=== PATIENT | female | born 1990 | race Caucasian/White ===

== ENCOUNTER 2016-11-09 08:55 | Emergency (ER) | payer MEDICAID ==
[2016-11-09 09:02] VITALS: BP 138/87
[2016-11-09] MEDS ORDERED: IBUPROFEN 600 MG TABLET PO ONE (09:20)
--- NOTE | 2016-11-09 09:59 | RADIOLOGY REPORT (SQ) ---
EXAM DESCRIPTION: CT HEAD WITHOUT COMPLETED DATE/TIME: 11/09/2016 9:47 am REASON FOR STUDY: right sided angelo COMPARISON: None. TECHNIQUE: Axial images acquired through the brain without intravenous contrast. Images reviewed wi th bone, brain and subdural windows. Images stored on PACS. All CT scanners at this facility use dose modulation, iterative reconstruction, and/or weight based d osing when appropriate to reduce radiation dose to as low as reasonably achievable (ALARA). [facility]: Dose Right [facility]: CareDose [facility]: Dose Right [facility]: Teradose 4D [facility]: Smart [employer] RADIATION DOSE: Up-to-date CT equipment and radiation dose reduction techniques were employed. CTDIv ol: 64.6 mGy. DLP: 1034 mGy-cm. mGy. LIMITATIONS: None. FINDINGS: VENTRICLES: Normal size and contour. CEREBRUM: No masses. No hemorrhage. No midline shift. No evidence for acute infarction. Normal gra y/white matter differentiation. No areas of low density in the white matter. CEREBELLUM: No masses. No hemorrhage. No alteration of density. No evidence for acute infarction. EXTRAAXIAL SPACES: No fluid collections. No masses. ORBITS AND GLOBE: No intra- or extraconal masses. Normal contour of globe without masses. CALVARIUM: No fracture. PARANASAL SINUSES: No fluid or mucosal thickening. SOFT TISSUES: No mass or hematoma. OTHER: No other significant finding. IMPRESSION: NORMAL BRAIN CT WITHOUT CONTRAST. COMMENT: Quality ID # [id number]: Final reports with documentation of one or more dose reduction techniques (e.g., Automated exposure control, adjustment of the mA and/or kV according to patient size, use of iterative reconstruction technique) TECHNICAL DOCUMENTATION: JOB ID: [id number]- All Rights Reserved
--- NOTE | 2016-11-09 10:03 | ER Document Report ---
ED Headache - General Chief Complaint: Headache >24 hrs old Stated Complaint: HEADACHE/BLURRED VISION Time Seen by Provider: 11/09/16 09:20 Mode of Arrival: Ambulatory Information source: Patient Notes: Patient presents with 3 days of right-sided headache. She states the pain is been intermittent and moderate to severe. It is mainly around the right orbital area but does radiate to the rest of her head. She denies any recent trauma. She has had some allergies but no other sinus congestion. No significant change of vision. No vomiting. She denies any significant past medical history or surgeries. Nothing makes the pain better or worse. TRAVEL OUTSIDE OF THE [place] IN LAST 30 DAYS: No - Related Data Allergies/Adverse Reactions: No Known Allergies Allergy (Verified 11/09/16 09:00) Past Medical History - General Information source: Patient - Social History Smoking Status: Never Smoker Chew tobacco use (# tins/day): No Frequency of alcohol use: Rare Drug Abuse: None Family History: Reviewed & Not Pertinent Patient has suicidal ideation: No Patient has homicidal ideation: No Renal/ Medical History: Denies: Hx Peritoneal Dialysis Surgical Hx: Negative Review of Systems - Review of Systems Constitutional: denies: Chills, Fever Respiratory: denies: Cough, Short of breath Gastrointestinal: denies: Abdominal pain, Diarrhea, Vomiting -: Yes All other systems reviewed and negative Physical Exam - Vital signs Vitals: Temp Pulse Resp BP Pulse Ox 98.6 F 85 16 138/87 H 98 11/09/16 08:59 11/09/16 08:59 11/09/16 08:59 11/09/16 08:59 11/09/16 08:59 Interpretation: Hypertensive - General General appearance: Appears well, Alert - HEENT Head: Normocephalic, Atraumatic Eyes: Normal Pupils: PERRL - Respiratory Respiratory status: No respiratory distress Chest status: Nontender Breath sounds: Normal Chest palpation: Normal - Cardiovascular Rhythm: Regular Heart sounds: Normal auscultation Murmur: No - Abdominal Inspection: Normal Distension: No distension Bowel sounds: Normal Tenderness: Nontender Organomegaly: No organomegaly - Back Back: Normal, Nontender - Extremities General upper extremity: Normal inspection, Nontender, Normal color, Normal ROM , Normal temperature General lower extremity: Normal inspection, Nontender, Normal color, Normal ROM , Normal temperature, Normal weight bearing. No: Celia's sign - Neurological Neuro grossly intact: Yes Cognition: Normal Orientation: AAOx4 [place] Coma Scale Eye Opening: Spontaneous [place] Coma Scale Verbal: Oriented [place] Coma Scale Motor: Obeys Commands Hamilton Coma Scale Total: 15 Speech: Normal Cranial nerves: Normal Cerebellar coordination: Normal Motor strength normal: LUE, RUE, LLE, RLE Sensory: Normal - Psychological Associated symptoms: Normal affect, Normal mood - Skin Skin Temperature: Warm Skin Moisture: Dry Skin Color: Normal Course - Vital Signs Vital signs: Temp Pulse Resp BP Pulse Ox 98.6 F 85 16 138/87 H 98 11/09/16 08:59 11/09/16 09:19 11/09/16 09:19 11/09/16 09:19 11/09/16 09:19 - Diagnostic Test Radiology reviewed: Image reviewed, Reports reviewed - Head CT shows no evidence of acute intracranial abnormality Discharge - Discharge Clinical Impression: Migraine Condition: Stable Disposition: HOME, SELF-CARE Instructions: Headache ([facility]) Additional Instructions: Please follow-up with your primary care physician as soon as possible Prescriptions: Hydrocodone/Acetaminophen [[place] 5-325 mg Tablet] 1 tab PO Q6 #8 tablet Forms: Elevated Blood Pressure Referrals: ARNOLD VICENTE MD [ACTIVE STAFF] - Follow up in 1 week
== END 2016-11-09 10:07 | disposition home or self-care (01) ==
LOC: ER 08:55
DX: G43.909 Migraine, unspecified, not intractable, without status migrainosus (principal); R51 Headache; H53.8 Other visual disturbances
CPT/HCPCS: 99284; 70450; J3490

== ENCOUNTER 2016-11-13 20:11 | Observation (INO) | payer MEDICAID ==
--- NOTE | 2016-11-13 13:45 | ER Document Report ---
ED Medical Screen (RME) - General Chief Complaint: Flank Pain Stated Complaint: FLANK PAIN Time Seen by Provider: 11/13/16 13:02 Mode of Arrival: Ambulatory Information source: Patient TRAVEL OUTSIDE OF THE [place] IN LAST 30 DAYS: No - HPI Patient complains to provider of: right flank pain Onset: This afternoon Onset/Duration: Sudden Quality of pain: Achy Severity: Severe Pain Level: 5 Associated Symptoms: Nausea, Vomiting Notes: 11/13/16 13:44 Patient is a 26-year-old female presenting to the emergency room today complaining of right-sided abdominal pain that radiates into her back, it started approximately 2 hours prior to arrival, and is associated with nausea and vomiting, denies any urinary symptoms, denies being , no previous abdominal surgeries, no history of similar symptoms previously - Related Data Allergies/Adverse Reactions: codeine Allergy (Verified 11/13/16 12:48) Past Medical History Renal/ Medical History: Denies: Hx Peritoneal Dialysis Physical Exam - Vital signs Vitals: Temp Pulse Resp BP Pulse Ox 97.8 F 71 18 107/71 98 11/13/16 12:46 11/13/16 12:46 11/13/16 12:46 11/13/16 12:46 11/13/16 12:46 Course - Vital Signs Vital signs: Temp Pulse Resp BP Pulse Ox 97.8 F 71 18 107/71 98 11/13/16 12:46 11/13/16 12:46 11/13/16 12:46 11/13/16 12:46 11/13/16 12:46
[2016-11-13 14:25] LABS: ABSOLUTE EOSINOPHILS # (AUTO) 0.1 10^3/uL (0.0-0.6); ABSOLUTE LYMPHOCYTES (AUTO) 1.1 10^3/uL (0.5-4.7); ABSOLUTE MONOCYTES (AUTO) 0.4 10^3/uL (0.1-1.4); ABSOLUTE NEUT (AUTO) 7.2 10^3/uL (1.7-8.2); BASOPHILS % (AUTO) 0.5 % (0-2); EOSINOPHILS % (AUTO) 0.7 % (0-6); HEMATOCRIT 41.4 % (36.0-47.0); HEMOGLOBIN 13.8 g/dL (12.0-15.5); MEAN CORPUSCULAR HEMOGLOBIN 30.9 pg (27.0-33.4); MEAN CORPUSCULAR HGB CONC 33.4 g/dL (32.0-36.0); MEAN CORPUSCULAR VOLUME 93 fl (80-97); MONOCYTES % (AUTO) 4.2 % (3-13); RED BLOOD COUNT 4.47 10^6/uL (3.72-5.28); RED CELL DISTRIBUTION WIDTH 13.5 % (11.5-14.0); SEGMENTED NEUTROPHILS % (AUTO) 81.6 % (42-78); WHITE BLOOD COUNT 8.8 10^3/uL (4.0-10.5)
[2016-11-13 14:54] LABS: ALANINE AMINOTRANSFERASE 25 U/L (9-52); ALBUMIN 4.5 g/dL (3.5-5.0); ALKALINE PHOSPHATASE 83 U/L (38-126); ANION GAP 11 (5-19); ASPARTATE AMINO TRANSFERASE 21 U/L (14-36); BILIRUBIN,DIRECT 0.4 mg/dL (0.0-0.4); BILIRUBIN,TOTAL 0.7 mg/dL (0.2-1.3); BLOOD UREA NITROGEN 16 mg/dL (7-20); CALCIUM 9.7 mg/dL (8.4-10.2); CARBON DIOXIDE 25 mmol/L (22-30); CHLORIDE 106 mmol/L (98-107); CREATININE RESULT 0.76 mg/dL (0.52-1.25); GLUCOSE 107 mg/dL (75-110); POTASSIUM 4.1 mmol/L (3.6-5.0); TOTAL PROTEIN 7.6 g/dL (6.3-8.2)
[2016-11-13 15:11] LABS: APPEARANCE,URINE TURBID; BILIRUBIN,URINE NEGATIVE (NEGATIVE); GLUCOSE, URINE NEGATIVE (NEGATIVE); KETONES,URINE NEGATIVE (NEGATIVE); LEUKOCYTE ESTERASE,URINE NEGATIVE (NEGATIVE); NITRITE,URINE NEGATIVE (NEGATIVE); PROTEIN,URINE NEGATIVE (NEGATIVE); URINE SPECIFIC GRAVITY 1.023; UROBILINOGEN,URINE NEGATIVE mg/dL (<2.0)
--- NOTE | 2016-11-13 15:18 | ER Document Report ---
ED GI/ - General Mode of Arrival: Ambulatory Information source: Patient TRAVEL OUTSIDE OF THE [place] IN LAST 30 DAYS: No - HPI Patient complains to provider of: Abdominal pain Onset: This afternoon - [id number] Timing/Duration: Persistent Location: RLQ Associated symptoms: Nausea, Vomiting Similar symptoms previously: No <EFREN CARNEY - Last Filed: 11/13/16 16:56> <ORACIO VERDUZCO - Last Filed: 11/14/16 00:45> - General Chief Complaint: Flank Pain Stated Complaint: FLANK PAIN Time Seen by Provider: 11/13/16 13:02 Notes: Patient is a 26 year old female that presents to the emergency department today with complaints of right lower quadrant abdominal pain. Patient states the pain seems to radiate to her back. Patient states she has a history of ovarian cysts but this pain feels different. Patient states she has had associated nausea and vomiting. (EFREN CARNEY) - Related Data Allergies/Adverse Reactions: codeine Allergy (Verified 11/13/16 12:48) Past Medical History - General Information source: Patient - Social History Smoking Status: Never Smoker Cigarette use (# per day): No Chew tobacco use (# tins/day): No Frequency of alcohol use: None Drug Abuse: None Lives with: Family Family History: Reviewed & Not Pertinent - Medical History Medical History: Negative Surgical Hx: Negative <EFREN CARNEY - Last Filed: 11/13/16 16:56> Review of Systems - Review of Systems Constitutional: No symptoms reported EENT: No symptoms reported Cardiovascular: No symptoms reported Respiratory: No symptoms reported Gastrointestinal: See HPI, Abdominal pain, Vomiting Genitourinary: No symptoms reported Female Genitourinary: No symptoms reported Musculoskeletal: No symptoms reported Skin: No symptoms reported Hematologic/Lymphatic: No symptoms reported Neurological/Psychological: No symptoms reported -: Yes All other systems reviewed and negative <EFREN CARNEY - Last Filed: 11/13/16 16:56> Physical Exam <EFREN CARNEY - Last Filed: 11/13/16 16:56> <ORACIO VERDUZCO - Last Filed: 11/14/16 00:45> - Vital signs Vitals: Temp Pulse Resp BP Pulse Ox 97.8 F 71 18 107/71 98 11/13/16 12:46 11/13/16 12:46 11/13/16 12:46 11/13/16 12:46 11/13/16 12:46 - Notes Notes: Physical Exam: General: Alert, appears uncomfortable. HEENT: Normocephalic. Atraumatic. PERRL. Extraocular movements intact. Oropharynx clear. Neck: Supple. Non-tender. Respiratory: No respiratory distress. Clear and equal breath sounds bilaterally. Cardiovascular: Regular rate and rhythm. Abdominal: Right lower quadrant tenderness with palpation, palpation of left lower quadrant reproduces pain in the right lower quadrant. No distension. Normal Bowel Sounds. Back: Non-tender. No deformity or step off. Extremities: Moves all four extremities. Upper extremities: Normal inspection. Normal ROM. Lower extremities: Normal inspection. No edema. Normal ROM. Neurological: Normal cognition. AAOx4. Normal speech. Psychological: Normal affect. Normal Mood. Skin: Warm. Dry. Normal color. (EFREN CARNEY) Course - Laboratory Result Diagrams: 11/13/16 14:05 11/13/16 14:05 <EFREN CARNEY - Last Filed: 11/13/16 16:56> - Laboratory Result Diagrams: 11/13/16 14:05 11/13/16 14:05 - Diagnostic Test Radiology reviewed: Reports reviewed <ORACIO VERDUZCO - Last Filed: 11/14/16 00:45> - Re-evaluation Re-evalutation: 11/13 Patient is a 26-year-old female who comes in complaining of right lower abdominal pain. Patient with appendicolith on CT that is retrocecal and some inflammation. Patient also with ovarian cyst bilaterally, the right which is quite large. Patient states that she has had ovarian cyst and the pain does not feel the same as it has in the past. Patient discussed with Dr. Moses. Transvaginal ultrasound with Doppler ordered. Dr. Moses is concerned that the patient has appendicitis and will take her to the OR. He is also calling the FINISH GRINDER, Dr. Romero to also come to the OR. Patient has been n.p.o. She has been fluid resuscitated, given pain and nausea medicine. Stable at time of admission. Agrees with plan. (ORACIO VERDUZCO) - Vital Signs Vital signs: Temp Pulse Resp BP Pulse Ox 97.8 F 71 18 107/71 98 11/13/16 12:46 11/13/16 12:46 11/13/16 12:46 11/13/16 12:46 11/13/16 12:46 - Laboratory Laboratory results interpreted by me: 11/13/16 11/13/16 14:05 14:05 Seg Neutrophils % 81.6 H Urine Blood SMALL H Discharge <EFREN CARNEY - Last Filed: 11/13/16 16:56> - Discharge Admitting Provider: Surgicalist - [place] Unit Admitted: Surgical Floor <ORACIO VERDUZCO - Last Filed: 11/14/16 00:45> - Discharge Clinical Impression: Possible appendicitis, Cysts of both ovaries Abdominal pain Qualifiers: Abdominal location: right lower quadrant Qualified Code(s): R10.31 - Right lower quadrant pain Condition: Stable Disposition: ADMITTED INPATIENT Scribe Attestation: 11/13/16 16:35 I personally performed the services described in the documentation, reviewed and edited the documentation which was dictated to the scribe in my presence, and it accurately records my words and actions. (ORACIO VERDUZCO) Scribe Documentation - Scribe Written by Delmi:: Delmi Rosario, 11/13/2016 1649 acting as scribe for :: Bridgette <EFREN CARNEY - Last Filed: 11/13/16 16:56>
--- NOTE | 2016-11-13 16:01 | RADIOLOGY REPORT (SQ) ---
EXAM DESCRIPTION: CT LTD RENAL STONE PROTOCOL ON COMPLETED DATE/TIME: 11/13/2016 3:42 pm REASON FOR STUDY: abd, flank pain COMPARISON: None. TECHNIQUE: CT scan of the abdomen and pelvis performed without intravenous or oral contrast. Images reviewed with lung, soft tissue, and bone windows. Reconstructed coronal and sagittal MPR images revi ewed. All images stored on PACS. All CT scanners at this facility use dose modulation, iterative reconstruction, and/or weight based d osing when appropriate to reduce radiation dose to as low as reasonably achievable (ALARA). [facility]: Dose Right [facility]: CareDose [facility]: Dose Right [facility]: Teradose 4D [facility]: Smart [employer] RADIATION DOSE: Up-to-date CT equipment and radiation dose reduction techniques were employed. CTDIv ol: 11.5 mGy. DLP: 658 mGy-cm.mGy. LIMITATIONS: None. FINDINGS: On coronal images 28 through 34, there is inflammation in the right lower quadrant fat adj acent to a loop of distal ileum filled with feces like material. This is abnormal but nonspecific. Patient has a retrocecal appendix with an at appendicolith. No definite periappendiceal inflammation or fluid or abscess. Mild appendix wall thickening along its tip. These changes are best shown on sagittal images 31 through 34. In the right adnexa, a low-density 7 x 6 cm cyst is present. No right adnexal free fluid. These above findings were discussed with Dr. Angeles in the emergency room, 1548 hours 11/13/2016 LOWER CHEST: No significant findings. No nodules or infiltrates. NON-CONTRASTED LIVER, SPLEEN, ADRENALS: Evaluation limited by lack of IV contrast. No identified sign ificant masses. PANCREAS: No masses. No peripancreatic inflammatory changes. GALLBLADDER: No identified stones by CT criteria. No inflammatory changes to suggest cholecystitis. RIGHT KIDNEY AND URETER: No suspicious masses. Assessment limited by lack of IV contrast. No signif icant calcifications. No hydronephrosis or hydroureter. LEFT KIDNEY AND URETER: No suspicious masses. Assessment limited by lack of IV contrast. No signifi cant calcifications. No hydronephrosis or hydroureter. AORTA AND RETROPERITONEUM: No aneurysm. No retroperitoneal masses or adenopathy. BOWEL AND PERITONEAL CAVITY: No gross evidence of bowel obstruction. No free intraperitoneal air or fluid. Stomach, proximal small bowel is decompressed. There is feces like material in the distal sm all bowel, and a moderate amount of stool in the ascending colon. No colon diverticuli. APPENDIX: As above PELVIS, BLADDER, AND ABDOMINAL WALL:7 x 6 cm right ovarian/ adnexal cyst. Normal size uterus. Small less than 3 cm left ovarian cyst. No bladder stones. Limited view of the rectum unremarkable. No pelvic adenopathy. BONES: No significant findings. OTHER: No other significant finding. IMPRESSION: Moderate stool in the ascending colon. Stool-like material in the distal small bowel, w ith mild inflammatory stranding in the mesenteries to the distal ileum. Appendicular with minimal wall thickening distal tip of the appendix Right ovarian cyst/adnexal cyst COMMENT: Quality ID # [id number]: Final reports with documentation of one or more dose reduction techniques (e.g., Automated exposure control, adjustment of the mA and/or kV according to patient size, use of iterative reconstruction technique) TECHNICAL DOCUMENTATION: JOB ID: [id number] [employer]- All Rights Reserved
--- NOTE | 2016-11-13 16:45 | PDOC H&P ---
History of Present Illness Admission Date/PCP: Today's date, November 13, 2016 Patient complains of: Abdominal pain nausea and vomiting History of Present Illness: RADHA MARTE is a 26 year old female who is brought by ground rescue to [facility] complaint acute onset abdominal pain right sided right flank associated nausea and vomiting. She denies history of previous episodes, history of trauma, history of gastrointestinal problems. Last bowel movement this morning, normal. She has a history of large right ovarian cyst, and the pain associated with this cyst is different from today's pain. The patient was seen in the emergency department where she was felt to have a possible kidney stone. Her urinalysis was unremarkable. She underwent CT scan of the abdomen and pelvis without IV and oral contrast which showed the right large ovarian cyst approximately 6-7 cm, some inflammatory change in the right lower quadrant , some equalization of the lumen of the distal small bowel, and an appendicolith in a fairly normal sized appendix, with periappendiceal stranding. Surgery was consulted. Patient continued to have abdominal pain. She was advised admission and definitive management. Past Surgical History Past Surgical History: Reports: Other - Right variant cyst, previously undergoing diagnostic laparoscopy by Dr. Landers Social History Smoking Status: Never Smoker Hx Recreational Drug Use: No Hx Prescription Drug Abuse: No Family History Family History: Reviewed & Not Pertinent Parental Family History Reviewed: Yes Children Family History Reviewed: Yes Sibling(s) Family History Reviewed.: Yes Medication/Allergy Home Medications: Hydrocodone/Acetaminophen [[place] 5-325 mg Tablet] 1 tab PO Q6 #8 tablet Allergies/Adverse Reactions: codeine Allergy (Verified 11/13/16 12:48) Review of Systems Constitutional: PRESENT: as per HPI Eyes: ABSENT: visual disturbances Ears: ABSENT: hearing changes Cardiovascular: ABSENT: chest pain, dyspnea on exertion, edema, orthropnea, palpitations Respiratory: ABSENT: cough, hemoptysis Genitourinary: ABSENT: dysuria, hematuria Integumentary: ABSENT: rash, wounds Neurological: ABSENT: abnormal gait, abnormal speech, confusion, dizziness, focal weakness, syncope Hematologic/Lymphatic: ABSENT: easy bleeding, easy bruising Physical Exam Vital Signs: Temp Pulse Resp BP Pulse Ox 97.8 F 71 18 107/71 98 11/13/16 12:46 11/13/16 12:46 11/13/16 12:46 11/13/16 12:46 11/13/16 12:46 Intake & Output 11/12/16 11/13/16 11/14/16 06:59 06:59 06:59 Weight 95.6 kg General appearance: PRESENT: mild distress Head exam: PRESENT: normocephalic Eye exam: PRESENT: EOMI Ear exam: PRESENT: normal external ear exam Mouth exam: PRESENT: moist Respiratory exam: PRESENT: clear to auscultation hayde Cardiovascular exam: PRESENT: RRR Pulses: PRESENT: +2 pedal pulses bilateral GI/Abdominal exam: PRESENT: other - Very tender right lower quadrant and right flank. Some tenderness in the pelvic region, but pain is referred to the right side Rectal exam: PRESENT: deferred Musculoskeletal exam: PRESENT: full ROM Neurological exam: PRESENT: alert, oriented to person, oriented to place, oriented to time, oriented to situation Psychiatric exam: PRESENT: appropriate affect Results Laboratory Results: 11/13/16 14:05 11/13/16 14:05 11/13/16 11/13/16 11/13/16 14:05 14:05 14:05 WBC 8.8 RBC 4.47 Hgb 13.8 Hct 41.4 MCV 93 MCH 30.9 MCHC 33.4 RDW 13.5 Plt Count 343 Seg Neutrophils % 81.6 H Lymphocytes % 13.0 Monocytes % 4.2 Eosinophils % 0.7 Basophils % 0.5 Absolute Neutrophils 7.2 Absolute Lymphocytes 1.1 Absolute Monocytes 0.4 Absolute Eosinophils 0.1 Absolute Basophils 0.0 Sodium 142.0 Potassium 4.1 Chloride 106 Carbon Dioxide 25 Anion Gap 11 BUN 16 Creatinine 0.76 Est GFR ( Amer) > 60 Est GFR (Non-Af Amer) > 60 Glucose 107 Calcium 9.7 Total Bilirubin 0.7 AST 21 ALT 25 Alkaline Phosphatase 83 Total Protein 7.6 Albumin 4.5 Lipase 76.0 Serum HCG, Qual NEGATIVE Urine Color Urine Appearance Urine pH Ur Specific Hamilton Urine Protein Urine Glucose (UA) Urine Ketones Urine Blood Urine Nitrite Ur Leukocyte Esterase Urine WBC (Auto) Urine RBC (Auto) 11/13/16 14:05 WBC RBC Hgb Hct MCV MCH MCHC RDW Plt Count Seg Neutrophils % Lymphocytes % Monocytes % Eosinophils % Basophils % Absolute Neutrophils Absolute Lymphocytes Absolute Monocytes Absolute Eosinophils Absolute Basophils Sodium Potassium Chloride Carbon Dioxide Anion Gap BUN Creatinine Est GFR ( Amer) Est GFR (Non-Af Amer) Glucose Calcium Total Bilirubin AST ALT Alkaline Phosphatase Total Protein Albumin Lipase Serum HCG, Qual Urine Color YELLOW Urine Appearance TURBID Urine pH 5.0 Ur Specific [place] 1.023 Urine Protein NEGATIVE Urine Glucose (UA) NEGATIVE Urine Ketones NEGATIVE Urine Blood SMALL H Urine Nitrite NEGATIVE Ur Leukocyte Esterase NEGATIVE Urine WBC (Auto) 5 Urine RBC (Auto) 0 Impressions: Limited or Localized CT 11/13/16 15:24 IMPRESSION: Moderate stool in the ascending colon. Stool-like material in the distal small bowel, with mild inflammatory stranding in the mesenteries to the distal ileum. Appendicular with minimal wall thickening distal tip of the appendix Right ovarian cyst/adnexal cyst Assessment & Plan - Diagnosis (1) Abdominal pain Qualifiers: Abdominal location: right lower quadrant Qualified Code(s): R10.31 - Right lower quadrant pain Is this a current diagnosis for this admission?: Yes Plan: Associated with nausea and vomiting, CT scan findings consistent with appendicolith with periappendiceal stranding. Patient's symptom complex is different from previous abdominal pelvic pains attributed to ovarian cyst enlargement. I believe the patient is suffering from acute appendicitis, early, and deserves laparoscopic appendectomy. Naturally concomitant gynecologic pathology may be encountered. I have alerted [facility] customer operations representative Dr. Romero to be on standby. I have explained the recommendations to the patient and she agrees to proceed. We will perform laparoscopic, possible open appendectomy, other necessary surgery deemed appropriate based on intraoperative findings, [facility], general anesthesia. (2) Ovarian cyst Qualifiers: Laterality: bilateral Qualified Code(s): N83.201 - Unspecified ovarian cyst , right side; N83.202 - Unspecified ovarian cyst, left side Is this a current diagnosis for this admission?: Yes Plan: Chronic, right side dominant approximately 7 cm; smaller 2-1/2 cm left ovarian cyst. Unlikely rupturing and unlikely torsed. (3) Migraine Is this a current diagnosis for this admission?: Yes - Time Time Spent: 50 to 70 Minutes Critical Time spent with patient: Less than 15 minutes Medications reviewed and adjusted accordingly: Yes Anticipated discharge: Home Within: within 24 hours - Inpatient Certification Based on my medical assessment, after consideration of the patient's comorbidities, presenting symptoms, or acuity I expect that the services needed warrant INPATIENT care.: Yes I certify that my determination is in accordance with my understanding of Medicare's requirements for reasonable and necessary INPATIENT services [42 CFR 412.3e].: Yes Medical Necessity: Need For IV Fluids, Need for Pain Control, Need for IV Antibiotics, Need for Surgery
--- NOTE | 2016-11-13 19:41 | Operative Report ---
Operative Report DATE OF SURGERY: 11/13/16 PREOPERATIVE DIAGNOSIS: 1. Acute abdominal pain. 2. Acute appendicitis. 3. Right ovarian cyst POSTOPERATIVE DIAGNOSIS: 1. limited hemoperitoneum. 2. Right torsed hydrosalpinx. 3. Inflamed appendix. 4. 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 Exploratory laparoscopy. 2. Laparoscopic appendectomy. 3. Assist with right salpingectomy SURGEON: HALIE MOSES 1ST HAZARDOUS MATERIAL SPECIALIST: HEATHER ALFRED ANESTHESIA: GA TISSUE REMOVED OR ALTERED: 1 appendix; right hydrosalpinx COMPLICATIONS: None ESTIMATED BLOOD LOSS: 15 cc INTRAOPERATIVE FINDINGS: See below PROCEDURE: Indications: The patient is a 23-year-old white female with history of acute onset abdominal pain localized right lower quadrant tenderness mild left shift and CT scan findings consistent with right ovarian cyst, and inflamed appendix with appendicolith. She was advised to undergo laparoscopic appendectomy and necessary surgery. I explained to the patient as well as her parents that we had WATER REGULATOR AND VALVE REPAIRER on standby if intraoperative consultation was required for management of pelvic disease identified at time of diagnostic laparoscopy. Patient was taken the operating room where general anesthesia was induced arms were abducted abdomen prepped and draped in sterile fashion instrumentation set up for laparoscopic appendectomy. Surgical plan and surgical timeout were conducted Skin was any stopped quarter percent Marcaine above the umbilicus, in the suprapubic area and in the left lower quadrant. Prior to draping and prepping, however, the patient had a Taylor catheter inserted. A supraumbilical vertical incision was made with a knife, Veress needle inserted the peritoneal cavity, pneumoperitoneum was established. Veress needle was removed 5 mm ports inserted a 5 mm flexible scope was inserted. 2 additional ports were placed one 5 mm in the suprapubic position and a 12 mm left lower quadrant Findings are significant for a mild amount of free blood in the pelvis. We immediately identified a large hemorrhagic mass in the retrouterine area lying adjacent to the right tube and ovary. We left it as it is and call Dr. lAfred , range master for intraoperative consultation. 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 The liver parenchyma, gallbladder, stomach spleen small intestine and large colon and peritoneal cavity otherwise appeared grossly normal. We elevated the cecum cephalad, mobilizing the small bowel out of the pelvis and exposed the appendix which was chronically thickened. It was elevated into the free peritoneal space. Mesial appendix was released partially, then a dissector was used to get around the base of the appendix which was very normal at stump. A single firing of the Hoot Owl Endo DAVIS, blue load, 45 mm staplr was deployed and the appendix was amputated at its base. A separate firing was then performed across the mesoappendix again with the terminal ileum and cecum well out of harm's way. Unfortunately there was a bleeder from the mesoappendiceal tissue that was left in situ and this was managed with a single application of a Hemoclip. Hemostasis was achieved. The next portion of the operation was performed by Dr. Alfred, and dictated by her separately. Dr. Moses assisted Dr. Alfred in that portion of the operation. Once the right hydrosalpinx was removed and photographs were taken of the residual pathoanatomy in the pelvis, we felt the operation was complete. Sponge and needle counts correct. All ports removed under direct visualization pneumoperitoneum evacuated and all 4 wounds from 4 port sites with the fourth being the right lower quadrant as evidenced by Dr. Alfred were closed with 3-0 Vicryl benzoin and Steri-Strips Patient taught procedure well, extubated and taken recovery in stable condition.
[~2016-11-13 20:11] MED LIST: BUPIVACAINE HCL 0.25 % INJ/PF (2.5 MG/1 ML) 30 ML VIAL ONE; CEFAZOLIN INJ 1 GM VIAL ONE; DEXAMETHASONE SOD PHOSPHATE INJ 4 MG/1 ML VIAL ONE; DIPHENHYDRAMINE HCL 50 MG/ML VIAL IV PRN; EPHEDRINE SULFATE INJ 50 MG/1 ML AMPULE ONE; FENTANYL CITRATE INJ/PF 100 MCG/2 ML AMPUL IV PRN; FENTANYL CITRATE INJ/PF 100 MCG/2 ML AMPUL ONE; GLYCOPYRROLATE INJ 0.4 MG/2 ML VIAL ONE; HYDROMORPHONE HCL INJ/PF 2 MG/ML AMPULE ONE; IBUPROFEN INJ 800 MG/8 ML VIAL IV ONE; KETOROLAC TROMETHAMINE 10 MG TABLET PO PRN; KETOROLAC TROMETHAMINE INJ/PF 30 MG/1 ML SDV IV PRN; MEPERIDINE HCL/PF INJ 25 MG/1 ML DISP.SYRIN IV PRN; MIDAZOLAM 2 MG/2 ML INJ ONE; MORPHINE SULFATE 10 MG/ML INJ IV ONE; MORPHINE SULFATE 10 MG/ML INJ IV PRN; NEOSTIGMINE METHYLSULFATE 10 MG/10 ML VIAL ONE; NORMAL SALINE 1000 ML 1,000 ML IV ONE; NORMAL SALINE 1000 ML 1,000 ML IV PRN; ONDANSETRON HCL INJ/PF 4 MG/2 ML SDV IV ONE; ONDANSETRON HCL INJ/PF 4 MG/2 ML SDV IV PRN; ONDANSETRON HCL INJ/PF 4 MG/2 ML SDV ONE; PROMETHAZINE HCL INJ 25 MG/1 ML VIAL IV PRN; PROPOFOL INJ 200 MG/20 ML VIAL IV ONE; ROCURONIUM BROMIDE INJ 50 MG/5 ML VIAL IV ONE
--- NOTE | 2016-11-13 20:13 | OPERATIVE REPORT E ---
Operative Report NAME: ARDHA MARTE : 1990 AGE: 26Y DATE OF SURGERY: 11/13/2016 ROOM: PREOPERATIVE DIAGNOSIS: Abdominal pain. POSTOPERATIVE DIAGNOSES: 1. Torsed right hydrosalpinx. 2. 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 OPERATION: 1. Appendectomy per Augustine Moses MD. 2. Right salpingectomy, Yadiel Douglas MD. SURGEON: YADIEL DOUGLAS M.D. SURGEON: Augustine Moses MD for appendectomy. ESTIMATED BLOOD LOSS: Per anesthesia. SPECIMEN TO PATHOLOGY: Right hydrosalpinx and appendix. FINDINGS: The appendix was almost removed by the time that time that I arrived in the OR. The right fallopian tube was necrotic in appearance, approximately 7 to 8 cm in size and torsed near the right ovary. The right ovary itself appeared normal. There was also evidence of Saturnino-Christopher and Leo syndrome above the patient's liver. There was also obvious adhesive disease of the left fallopian tube which was adhered over the left ovary. The left fallopian tube itself appeared to have a small hydrosalpinx distally within it. DESCRIPTION OF PROCEDURE: Dr. Moses had discussed the procedure with the patient prior to taking her to the OR. On my arrival, there were [address], a 12 mm in the left hemiabdomen, a 5 mm in the umbilicus, and a 5 mm in the suprapubic region. Dr. Moses performed appendectomy in standard fashion and placed the specimen in the pelvis. I then premedicated the trocar site for the right lower quadrant and under direct visualization, placed a 5 mm trocar. The LigaSure device was introduced through this trocar and the salpingectomy performed at the base of the strictured region. This was almost immediately adjacent to the ovary, but did not include blood supply to the ovary. After removing the torsed hydrosalpinx, it was placed in the posterior cul-de-sac. The LigaSure device was removed. A suction attached to a needle tipped device was introduced through the trocar under direct visualization and used to puncture the cyst cavity to allow for decompression enough to place it within the Endo Catch bag. The suction was then removed. The appendix and the right fallopian tube were placed within the Endo Catch bag. The hydrosalpinx still contained clear fluid at this point. The 12 mm trocar was removed and the Endo Catch removed through that trocar site, grasping with Shyann clamps. The tube was morcelized with Kellys and suction was used to decompress the bag further. The appendix was also removed in this fashion. The 12 mm trocar was then replaced. The pelvis was irrigated copiously and hemostasis assured throughout. I then left the OR and Dr. Moses removed the trocars and repaired the incisions. DICTATING PHYSICIAN: YADIEL DOUGLAS M.D. [id number] PHY#: [id number] ID: [id number] JOB#: [id number] ACCT: [id number] cc:YADIEL DOUGLAS M.D. > MTDD
[2016-11-13 23:46] LABS: CHLAM PCR NOT DETECTED (NOT DETECT)
[2016-11-14] MEDS ORDERED: DOXYCYCLINE HYCLATE 100 MG TABLET PO SCH (10:00)
--- NOTE | 2016-11-14 10:38 | DISCHARGE SUMMARY E ---
Discharge Summary NAME: RADHA MARTE : 1990 AGE: 26Y ADMITTED: 11/13/2016 DISCHARGED: 11/14/2016 FINAL DIAGNOSES: 1. Acute appendicitis. 2. Torsion of right hydrosalpinx. 3. 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 PROCEDURE DONE: Appendectomy by Dr. Moses and right salpingectomy by Dr. Morrow on 11/13/2016. HOSPITAL COURSE: Patient admitted with right lower quadrant abdominal pains. Patient underwent an appendectomy by Dr. Moses and right salpingectomy for torsion of the right hydrosalpinx by Dr. Morrow done laparoscopically. Postoperatively patient did well. She is tolerating a regular diet this morning on the day of discharge. She will be discharged on doxycycline 100 mg p.o. b.i.d. for 1 week and she will be followed up in the office by Dr. Moses and Dr. Morrow in about 1-2 weeks. 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 DICTATING PHYSICIAN: EVELYN SANDOVAL M.D. [id number] PHY#: [id number] ID: [id number] JOB#: [id number] ACCT: [id number] cc:HALIE MOSES M.D., FAUSTINO M.D. >
[2016-11-14 12:26] VITALS: BP 111/62
== END 2016-11-14 12:44 | disposition home or self-care (01) ==
LOC: 2S 20:11 → LC 20:11 → 2S 20:33 → LC 20:33 → 2S 21:58 → UNDOADMOB 22:07 → 2S 22:07 → UNDODISOB 11-14 12:44
PROVIDERS: ADMIT Surgery; ATTEND Surgery
PROC: 0DTJ4ZZ Resection of Appendix, Percutaneous Endoscopic Approach (ICD-10-PCS; 2016-11-13)
PROC: 0UB54ZZ Excision of Right Fallopian Tube, Percutaneous Endoscopic Approach (ICD-10-PCS; principal; 2016-11-13 18:10)
DX: K35.80 Unspecified acute appendicitis (principal); N83.521 Torsion of right fallopian tube; N70.11 Chronic salpingitis; N73.6 Female pelvic peritoneal adhesions (postinfective); N83.202 Unspecified ovarian cyst, left side; G43.909 Migraine, unspecified, not intractable, without status migrainosus
CPT/HCPCS: 96376; 99285; 96361; 96375; 36415; 83690; 84703; 96374; 85025; 80053; 81001; 87491; 87591; 88304 ×2; 76380; 94799; 58661; 44979; J2250; J0690; J3490 ×3; J1100; J3010; J2270; J1170; J2405; S0020; J7030; J2704; J1741; 840

== ENCOUNTER 2016-11-16 14:16 | Emergency (ER) | payer MEDICAID ==
--- NOTE | 2016-11-16 14:36 | ER Document Report ---
ED Medical Screen (RME) - General Chief Complaint: Arm Pain Stated Complaint: RIGHT ARM PAIN AND SWELLING Time Seen by Provider: 11/16/16 14:33 Mode of Arrival: Ambulatory Information source: Patient TRAVEL OUTSIDE OF THE [place] IN LAST 30 DAYS: No - HPI Patient complains to provider of: R arm pain Onset: Yesterday - pt had appy 2 days ago and IV placed in R arm -- yesterday started having pain in R arm and now having red discolored areas on R arm - Related Data Allergies/Adverse Reactions: codeine Allergy (Verified 11/16/16 14:27) Past Medical History Renal/ Medical History: Denies: Hx Peritoneal Dialysis Past Surgical History: Reports: Other - Right variant cyst, previously undergoing diagnostic laparoscopy by Dr. Landers
[2016-11-16 14:50] LABS: ABSOLUTE BASOPHILS # (AUTO) 0.1 10^3/uL (0.0-0.2); ABSOLUTE LYMPHOCYTES (AUTO) 2.3 10^3/uL (0.5-4.7); ABSOLUTE MONOCYTES (AUTO) 0.6 10^3/uL (0.1-1.4); ABSOLUTE NEUT (AUTO) 5.4 10^3/uL (1.7-8.2); BASOPHILS % (AUTO) 0.7 % (0-2); EOSINOPHILS % (AUTO) 0.3 % (0-6); HEMATOCRIT 39.7 % (36.0-47.0); HEMOGLOBIN 13.8 g/dL (12.0-15.5); HGB HCT DIFFERENCE 1.7; LYMPHOCYTES % (AUTO) 27.6 % (13-45); MEAN CORPUSCULAR HEMOGLOBIN 31.4 pg (27.0-33.4); MEAN CORPUSCULAR HGB CONC 34.7 g/dL (32.0-36.0); MEAN CORPUSCULAR VOLUME 90 fl (80-97); MONOCYTES % (AUTO) 6.9 % (3-13); RED CELL DISTRIBUTION WIDTH 13.5 % (11.5-14.0); SEGMENTED NEUTROPHILS % (AUTO) 64.5 % (42-78); WHITE BLOOD COUNT 8.4 10^3/uL (4.0-10.5)
[2016-11-16 15:08] LABS: ALANINE AMINOTRANSFERASE 31 U/L (9-52); ALBUMIN 4.4 g/dL (3.5-5.0); ALKALINE PHOSPHATASE 80 U/L (38-126); ANION GAP 13 (5-19); ASPARTATE AMINO TRANSFERASE 20 U/L (14-36); BILIRUBIN,DIRECT 0.4 mg/dL (0.0-0.4); BILIRUBIN,TOTAL 0.7 mg/dL (0.2-1.3); BLOOD UREA NITROGEN 12 mg/dL (7-20); CALCIUM 9.9 mg/dL (8.4-10.2); CARBON DIOXIDE 27 mmol/L (22-30); CHLORIDE 101 mmol/L (98-107); CREATININE RESULT 0.72 mg/dL (0.52-1.25); GLUCOSE 90 mg/dL (75-110); POTASSIUM 3.8 mmol/L (3.6-5.0); SODIUM 141.1 mmol/L (137-145); TOTAL PROTEIN 7.4 g/dL (6.3-8.2)
[2016-11-16] MEDS ORDERED: ASPIRIN 325 MG TABLET PO ONE (17:14)
--- NOTE | 2016-11-16 17:14 | RADIOLOGY REPORT (SQ) ---
EXAM DESCRIPTION: VENOUS UNILATERAL UPPER COMPLETED DATE/TIME: 11/16/2016 5:00 pm REASON FOR STUDY: RRUE pain and swelling after IV on sunday, BC use COMPARISON: None. TECHNIQUE: Dynamic and static watters scale and color images acquired of the right arm venous system. S elected spectral images acquired with additional compression and augmentation maneuvers. The contrala teral subclavian vein and internal jugular vein were also imaged. Images stored on PACS. LIMITATIONS: None. FINDINGS: INTERNAL JUGULAR VEIN: Normal phasicity, compression, augmentation. No visualized echogeni c material on watters scale. No defects on color images. Comparison opposite side normal. SUBCLAVIAN VEIN: Normal compression, augmentation. No visualized echogenic material on watters scale. No defects on color images. AXILLARY VEIN: Normal compression, augmentation. No visualized echogenic material on watters scale. No d efects on color images. BRACHIAL VEIN: Normal compression, augmentation. No visualized echogenic material on watters scale. No d efects on color images. BASILIC VEIN: Thrombus present in the basilic vein. CEPHALIC VEIN: Thrombus present in the cephalic vein. OTHER: No other significant finding. CONTRALATERAL SUBCLAVIAN VEIN AND INTERNAL JUGULAR VEIN: Normal phasicity, compression and augmentation. No visualized echogenic material on watters scale. No de fects on color images. IMPRESSION: No evidence for DVT. Acute thrombus in the SVT basilic and cephalic veins. COMMENT: This report was called to HARRY GROVE at17:09 on 11/16/2016. TECHNICAL DOCUMENTATION: JOB ID: [id number] All Rights Reserved
--- NOTE | 2016-11-16 17:15 | ER Document Report ---
ED Extremity Problem, Upper - General Chief Complaint: Arm Pain Stated Complaint: RIGHT ARM PAIN AND SWELLING Time Seen by Provider: 11/16/16 14:33 Mode of Arrival: Ambulatory Notes: Patient is a 26-year-old female presents emergency department complaining of right arm pain. Patient states that she was here Sunday and got her appendix out and had an IV placed in her right antecubital fossa. She states over the past 2 days she woke up this morning with pain and redness over her site on her right external fossa with sporadic tenderness throughout the right arm. She denies any redness of the entire right upper extremity, pain with range of motion of the hand or wrist. She denies any fevers or chills. Patient is a non -smoker but is on control. TRAVEL OUTSIDE OF THE [place] IN LAST 30 DAYS: No - Related Data Allergies/Adverse Reactions: codeine Allergy (Verified 11/16/16 14:27) Past Medical History - General Information source: Patient - Social History Smoking Status: Never Smoker Chew tobacco use (# tins/day): No Frequency of alcohol use: None Drug Abuse: None Family History: Reviewed & Not Pertinent Renal/ Medical History: Denies: Hx Peritoneal Dialysis Past Surgical History: Reports: Hx Appendectomy, Hx Gynecologic Surgery - right falllopian tube, Other - Right variant cyst, previously undergoing diagnostic laparoscopy by Dr. Landers - Immunizations Hx Diphtheria, Pertussis, Tetanus Vaccination: Yes Review of Systems - Review of Systems Constitutional: No symptoms reported Musculoskeletal: See HPI Skin: See HPI -: Yes All other systems reviewed and negative Physical Exam - Vital signs Vitals: Temp Pulse Resp BP Pulse Ox 98.7 F 95 16 140/75 H 98 11/16/16 14:25 11/16/16 14:25 11/16/16 14:25 11/16/16 14:25 11/16/16 14:25 - Notes Notes: PHYSICAL EXAM GENERAL: Alert, interacts well. HEAD: Normocephalic, atraumatic. EYES: Pupils equal, round, and reactive to light. Extraocular movements intact. ENT: Oral mucosa moist, tongue midline. NECK: Full range of motion. Supple. Trachea midline. LUNGS: Clear to auscultation bilaterally, no wheezes, rales, or rhonchi. No respiratory distress. HEART: Regular rate and rhythm. No murmurs, gallops, or rubs. ABDOMEN: Soft, nondistended, nontender. No guarding, rebound, or rigidity.. Bowel sounds present in all 4 quadrants. EXTREMITIES: Moves all 4 extremities spontaneously. No edema, radial and dorsalis pedis pulses 2/4 bilaterally. No cyanosis. NEUROLOGICAL: Alert and oriented x4. Normal speech. PSYCH: Normal affect, normal mood. SKIN: Warm, dry, normal turgor. Evidence of mild erythema and tenderness medial to the antecubital fossa of the right arm. Intermittent tenderness along superficial vasculature of the right forearm. Course - Re-evaluation Re-evalutation: 11/16/16 1600 patient is a 26-year-old female is hemodynamically stable, no acute distress afebrile. No evidence of leukocytosis or anemia. No evidence of DVT noted on ultrasound. Evidence of thrombophlebitis. Patient is afebrile. Patient stable for discharge home with instruction use warm compresses and aspirin with strict return precautions. Patient agrees with plan. - Vital Signs Vital signs: Temp Pulse Resp BP Pulse Ox 98.2 F 83 18 116/74 98 11/16/16 17:15 11/16/16 17:15 11/16/16 17:15 11/16/16 17:15 11/16/16 17:15 - Laboratory Result Diagrams: 11/16/16 14:40 11/16/16 14:40 - Diagnostic Test Radiology reviewed: Reports reviewed Discharge - Discharge Clinical Impression: Superficial thrombophlebitis Qualifiers: Superficial thrombophlebitis-Involved body area: upper extremity Laterality: right Qualified Code(s): I80.8 - Phlebitis and thrombophlebitis of other sites Condition: Good Disposition: HOME, SELF-CARE Instructions: Superficial Phlebitis ([facility]) Additional Instructions: You can take aspirin and use warm compresses to help with your pain
[2016-11-16 17:26] VITALS: BP 116/74
== END 2016-11-16 17:26 | disposition home or self-care (01) ==
LOC: ER 14:16
DX: I80.8 Phlebitis and thrombophlebitis of other sites (principal); Z88.6 Allergy status to analgesic agent
CPT/HCPCS: 36415; 80053; 85025; 93971; 99284

== ENCOUNTER → 2017-01-24 | Outpatient (CLI) | payer MEDICAID ==
--- NOTE | 2017-01-24 16:39 | RADIOLOGY REPORT (SQ) ---
EXAM DESCRIPTION: HYSTEROSALPINGOGRAM; HYSTERO CATH/INJECTION COMPLETED DATE/TIME: 01/24/2017 3:47 pm REASON FOR STUDY: FEMALE PELVIC PERITONEAL ADHESIONS N73.6 FEMALE PELVIC PERITONEAL ADHESIONS (POST INFECTIVE) COMPARISON: None. PROCEDURE: PRE-PROCEDURE: Procedure was explained to the patient. She was told to expect cramping du ring the procedure, and possible spotting post procedure. PROCEDURE: The cervix was prepped in sterile fashion. Under direct visual inspection, the cervix was cannulated with the hysterosalpingogram catheter and contrast injected. TECHNIQUE: Temporal fluoroscopic images acquired during the procedure stored to PACS. FLUOROSCOPY TIME: Less than 5 seconds 19 digital images saved to PACS. LIMITATIONS: None. FINDINGS: UTERUS: No identified anomalies. No synechia. Small air bubbles from the catheter are se en in the endometrial canal which move on change of patient positioning RIGHT ADNEXA: No filling of the right fallopian tube. LEFT ADNEXA: No filling of the left fallopian tube. POST PROCEDURE: The patient tolerated the procedure with no adverse effects. IMPRESSION: Normal endometrial canal. No filling of the right or left fallopian tube. COMMENT: Quality ID [id number]: Final reports for procedures using fluoroscopy that document radiation exp osure indices, or exposure time and number of fluorographic images (if radiation exposure indices are not available) TECHNICAL DOCUMENTATION: JOB ID: [id number] 2021 [employer]- All Rights Reserved
== END ==
LOC: RAD 14:49
PROVIDERS: ATTEND Specialist
DX: N73.6 Female pelvic peritoneal adhesions (postinfective) (principal)
CPT/HCPCS: 58340; 74740